=== PATIENT | male | born 1985 | race Caucasian/White ===

== ENCOUNTER 2018-05-17 18:27 | Emergency (ER) | payer OTHER ==
[~2018-05-17] VITALS: Ht 172.7 cm; Wt 81.7 kg
[~2018-05-17 18:27] MED LIST: ACET325 PO; Bactrim Ds Tab1 EACH PO; CEPH500 PO; CYCL10 PO; Cleocin HCl300 MG PO; HYDACE10B PO; HYDACE5 PO; IBUP800 PO; META800 PO; NAPR500 PO; Naprosyn500 MG PO; Norco 5-325 Ta1 EACH PO; OXYACE5T PO; OXYC15ER PO; OXYC5 PO; PENVK500 PO; Percocet 5-3251 EACH PO; RIFA300 PO; RXCYCL10 PO; SULTRIDS PO; TRAM50 PO; Ultram50 MG PO
[2018-05-17] MEDS ORDERED: Bactrim Ds Tab1 EACH PO (20:56)
[2018-05-17] MEDS ORDERED: CORTIZONE-10 1%28 GM TOP (20:56)
[2018-05-17] MEDS ORDERED: CEPH500 PO (20:56)
== END 2018-05-17 21:01 | disposition home or self-care (01) ==
LOC: ER 18:27
DX: L03.011 Cellulitis of right finger (principal); L25.9 Unspecified contact dermatitis, unspecified cause; F15.10 Other stimulant abuse, uncomplicated; F17.210 Nicotine dependence, cigarettes, uncomplicated
CPT/HCPCS: 99283

== ENCOUNTER 2018-07-25 06:37 | Inpatient (IN) | payer OTHER ==
[~2018-07-25] VITALS: Ht 172.7 cm; Wt 87.2 kg
[~2018-07-25 06:37] MED LIST changes: +CORTIZONE-10 1%28 GM TOP
[2018-07-25 07:27] LABS: BASOPHILS ABSOLUTE AUTO 0.08 K/mm3 (0.00-0.23); BASOPHILS PERCENT AUTO 0 % (0-2); EOSINOPHILS PERCENT AUTO 0 % (0-6); Hematocrit 44.2 % (37.0-53.0); Hemoglobin 14.9 g/dL (13.5-17.5); IMMATURE GRAN ABSOLUTE AUTO 0.14 K/mm3 (0.00-0.10); IMMATURE GRAN PERCENT AUTO 1 % (0-1); LYMPHOCYTES ABSOLUTE AUTO 2.11 K/mm3 (0.84-5.20); LYMPHOCYTES PERCENT AUTO 9 % (21-46); MONOCYTES ABSOLUTE AUTO 2.16 K/mm3 (0.16-1.47); MONOCYTES PERCENT AUTO 9 % (4-13); Mean Corpuscular HGB 30.9 pg (26.0-34.0); Mean Corpuscular HGB Conc 33.7 g/dL (31.5-36.5); Mean Corpuscular Volume 92 fL (80-100); Mean Platelet Volume 11.2 fL (9.1-12.4); NEUTROPHILS ABSOLUTE AUTO 19.81 K/mm3 (1.96-9.15); NEUTROPHILS PERCENT AUTO 81 % (41-73); Platelet Count 231 K/mm3 (150-400); RDW Coefficient Variation 12.7 % (11.7-14.2); RDW Standard Deviation 42.9 fL (35.1-46.3); Red Blood Cell Count 4.82 M/mm3 (4.30-5.90)
[2018-07-25 07:43] LABS: Alanine Aminotransfer (ALT/SGP 46 U/L (12-78); Albumin, Blood 4.1 g/dL (3.4-5.0); Albumin/Globulin Ratio 1.2 (0.8-1.8); Alk Phos 68 U/L (50-136); Anion Gap 6 mmol/L (6-16); Aspartate Aminotrans (AST/SGOT 27 U/L (12-37); Bilirubin, Total 0.5 mg/dL (0.1-1.0); Blood Urea Nitrogen 24 mg/dL (8-24); CO2, Blood 26 mmol/L (21-32); Calcium, Blood 9.1 mg/dL (8.5-10.1); Chloride, Blood 102 mmol/L (98-108); Creatinine, Blood 0.96 mg/dL (0.60-1.20); Globulin, Blood 3.5 g/dL (2.2-4.0); Glomerular Filtration Rate >60 (60-); Glucose, Blood 87 mg/dL (70-99); Potassium, Blood 4.5 mmol/L (3.5-5.5); Sodium, Blood 134 mmol/L (136-145); Total Protein, Blood 7.6 g/dL (6.4-8.2)
--- NOTE | 2018-07-25 19:39 | NUR ---
SHIFT SUMMARY: PATIENT ADMIT (OBSERVATION) FROM ED THIS SHIFT. PT A&O; CALM AND COOPERATIVE WITH CARE. MEDICATED FOR R FOOT PAIN PER EMAR. TELE IN PLACE; SR @ 75 PER HOTEL FRONT DESK CLERK.NICODERM 21MG TOP IN PLACE TO R SHOULDER. PATIENT INDEPENDENT IN ROOM. IV ABX CONTINUING. WCTM.
[2018-07-26 05:24] LABS: Hematocrit 44.4 % (37.0-53.0); Hemoglobin 14.6 g/dL (13.5-17.5); Mean Corpuscular HGB 30.9 pg (26.0-34.0); Mean Corpuscular HGB Conc 32.9 g/dL (31.5-36.5); Mean Corpuscular Volume 94 fL (80-100); Mean Platelet Volume 10.3 fL (9.1-12.4); Platelet Count 313 K/mm3 (150-400); RDW Coefficient Variation 12.7 % (11.7-14.2); RDW Standard Deviation 43.8 fL (35.1-46.3); Red Blood Cell Count 4.73 M/mm3 (4.30-5.90); White Blood Cell Count 16.32 K/mm3 (4.00-11.30)
--- NOTE | 2018-07-26 07:44 | NUR ---
07/26/18 0600 VITALS STABLE. MEDICATED FOR PAIN SEVERAL TIMES WITH EFFECT. VOIDING QS. HAD RT FOOT UP ON PILLOW ON AND OFF. UNEVENTFUL NIGHT.
--- NOTE | 2018-07-26 13:38 | NUR ---
Patient is lying in bed and alert. Therapeutic alliance is easily established and so patient openly shares about his rough past and the point of turn around that has led to a whole new way of life. Patient admits that he still has a long way to go in terms of walking out the poor choices in his past but he has a good support system, new found samanta in God and a desire to help himself and others live a healthy life. I listened empathically, provided companionship, reinforced helpful attitudes and practices, provided pastoral certified addiction counselor, heard confession and provided prayer. Patient responded well and displayed evidence of restored samanta.
--- NOTE | 2018-07-26 16:31 | NUR ---
ADVISED PATIENT HAS WHAT APPEARS TO BE RINGWORM LEFT HIP ABOUT 4-5 INCHES LONG, RED, SCALEY, NO BLISTERS, THIN. WILL ORDER MEDS.
--- NOTE | 2018-07-26 16:32 | NUR ---
ALERT AND ORIENTED. GOES OUTSIDE IN WHEELCHAIR. DENIES SMOKING, BUT HAS BEEN SLEEPING MOST OF DAY WHEN IN ROOM. RT FOOT HOT TO TOUCH. PATIENT DOES NOT THINK SWELLING HAS DECREASED, BUT MD DOES. COOPERATIVE. UNLABORED RESPIRATIONS. MEDICATED FOR PAIN WITH GOOD RESULTS. BED IN LOW PSOITION. CALL LIGHT WITHIN REACH. ABLE TO MAKE NEEDS KNOWN. WCTM.
[2018-07-27 05:32] LABS: Hematocrit 49.1 % (37.0-53.0); Mean Corpuscular HGB Conc 32.6 g/dL (31.5-36.5); Mean Corpuscular Volume 95 fL (80-100); Mean Platelet Volume 10.5 fL (9.1-12.4); Platelet Count 309 K/mm3 (150-400); RDW Coefficient Variation 12.7 % (11.7-14.2); RDW Standard Deviation 45.1 fL (35.1-46.3); Red Blood Cell Count 5.16 M/mm3 (4.30-5.90); White Blood Cell Count 13.01 K/mm3 (4.00-11.30)
[2018-07-27 05:58] LABS: Anion Gap 7 mmol/L (6-16); Blood Urea Nitrogen 15 mg/dL (8-24); Bun/Creatinine Ratio 17.2 (12.0-20.0); CO2, Blood 27 mmol/L (21-32); Calcium, Blood 8.8 mg/dL (8.5-10.1); Chloride, Blood 104 mmol/L (98-108); Creatinine, Blood 0.87 mg/dL (0.60-1.20); Glomerular Filtration Rate >60 (60-); Glucose, Blood 87 mg/dL (70-99); Potassium, Blood 4.4 mmol/L (3.5-5.5); Sodium, Blood 138 mmol/L (136-145)
--- NOTE | 2018-07-27 06:34 | NUR ---
SHIFT SUMMARY PATIENT IS ALERT AND ORIENTED. USES CALL LIGHT APPROPRIATELY. PATIENT STAYED IN ROOM THROUGHOUT THE NIGHT, DID HAVE A VISITOR EARLY THIS AM- GIRLFRIEND. PATIENT COMPLAINED OF PAIN THROUGHOUT THE NIGHT AND WAS MEDICATED ORDERED. PT SLEPT WELL THROUGHOUT THE NIGHT. PT STATES HE WOULD LIKE TO SHOWER THIS AM. KEPT RIGHT FOOT ELEVATED ALL NIGHT. VITAL SIGNS STABLE.
--- NOTE | 2018-07-27 15:53 | NUR ---
Spiritual care visit conducted. Patient is sitting up in bed and alert. Patient stated yesterday that he is learning to play guitar and that when he hearded that I play guitar he asked if I could supply some guitar music. I brought my guitar in and played 3 songs then talked with patient about pulling his life up from a life of drugs and crime to a life that adds value and hope to others. I played one more song and patient got tearful and he talked about wanting to get take better care of himself physically and spiritually. Patient thanked me for the visit
--- NOTE | 2018-07-27 18:03 | NUR ---
PT IS ALERT AND ORIENTED AND COOPERATIVE WITH CARE. PT COMPLAINED OF RIGHT FOOT PAIN THROUGHOUT THE DAY AND WAS TREATED PER EMAR. PICTURES WERE TAKEN OF THE PATIENT'S FOOT AND PLACED IN THE CHART. TELEMETRY WAS DC'D. PT AMBULATES BY WHEELCHAIR. INDEPENDENT IN ROOM. WILL CONTINUE TO MONITOR.
[2018-07-28 05:38] LABS: BASOPHILS ABSOLUTE AUTO 0.07 K/mm3 (0.00-0.23); BASOPHILS PERCENT AUTO 1 % (0-2); EOSINOPHILS ABSOLUTE AUTO 0.27 K/mm3 (0.00-0.68); EOSINOPHILS PERCENT AUTO 3 % (0-6); Hematocrit 46.8 % (37.0-53.0); Hemoglobin 15.4 g/dL (13.5-17.5); IMMATURE GRAN ABSOLUTE AUTO 0.03 K/mm3 (0.00-0.10); IMMATURE GRAN PERCENT AUTO 0 % (0-1); LYMPHOCYTES ABSOLUTE AUTO 3.02 K/mm3 (0.84-5.20); LYMPHOCYTES PERCENT AUTO 29 % (21-46); MONOCYTES ABSOLUTE AUTO 0.99 K/mm3 (0.16-1.47); MONOCYTES PERCENT AUTO 9 % (4-13); Mean Corpuscular HGB Conc 32.9 g/dL (31.5-36.5); Mean Corpuscular Volume 94 fL (80-100); Mean Platelet Volume 10.5 fL (9.1-12.4); NEUTROPHILS ABSOLUTE AUTO 6.22 K/mm3 (1.96-9.15); NEUTROPHILS PERCENT AUTO 59 % (41-73); Platelet Count 318 K/mm3 (150-400); RDW Coefficient Variation 12.6 % (11.7-14.2); RDW Standard Deviation 43.3 fL (35.1-46.3); Red Blood Cell Count 4.97 M/mm3 (4.30-5.90)
[2018-07-28 06:05] LABS: Albumin, Blood 3.1 g/dL (3.4-5.0); Anion Gap 6 mmol/L (6-16); Blood Urea Nitrogen 17 mg/dL (8-24); CO2, Blood 28 mmol/L (21-32); Calcium, Blood 8.3 mg/dL (8.5-10.1); Chloride, Blood 104 mmol/L (98-108); Creatinine, Blood 0.85 mg/dL (0.60-1.20); Glomerular Filtration Rate >60 (60-); Glucose, Blood 131 mg/dL (70-99); Phosphorus, Blood 3.6 mg/dL (2.5-4.9); Potassium, Blood 3.7 mmol/L (3.5-5.5); Sodium, Blood 138 mmol/L (136-145)
--- NOTE | 2018-07-28 07:24 | NUR ---
SHIFT SUMMARY PATIENT IS ALERT AND ORIETNED, USES CALL LIGHT APPROPRIATELY. INDEPENDENT IN ROOM. COMPLAINS OF PAIN IN RIGHT FOOT. PATIENT SLEPT WELL THROUGHOUT THE NIGHT. VITALS STABLE.
--- NOTE | 2018-07-28 15:55 | NUR ---
Patient is sitting on the edge of his bed with his foot elevated. Because therapeutic alliance is already established patient tells me his encounters with demons and drug use and his turning to God for help. Patient is leaning into his samanta to help rebuild his life. Patient energizes himself as he tells his story and is grateful for all the support from the [facility] staff, from the user interface artist and from a few friends that are concerned for his health. I listened empathically, Provide pastoral funeral counselor and provide prayer. Patient appears emotionally touched by the prayer and voices appreciation.
--- NOTE | 2018-07-28 16:35 | NUR ---
SHIFT SUMMARY PATIENT ALERT AND ORIENTED. INDEPENDENT. C/O PAIN TO RIGHT FOOT THROUGHOUT THE SHIFT. MEDICATED PER E MAY. DENIES ANY SOB. ABSCESS TO RIGHT GREAT TOE, REDNESS AND SWELLING PRESENT. PATIENT GOES OUTSIDE TO SMOKE FREQUENTLY, TAKES HIMSELF IN WHEELCHAIR. CONSULT CALLED IN TO DR. RIVERA. NO ACUTE CHANGES. RN WILL CONTINUE TO MONITOR.
[2018-07-28 18:32] LABS: U Amphetamine Screen Not Detected; U Barbituate Screen Not Detected; U Benzodiazapine Screen Not Detected; U Cannabinoids Screen DETECTED; U Cocaine Screen Not Detected; U Methadone Screen Not Detected; U Methamphetamine Screen Not Detected; U Opiates Screen DETECTED; U Oxycodone Screen DETECTED; U Phencyclidine Screen Not Detected
[2018-07-28 18:33] LABS: U Buprenorphine Screen Not Detected; U Propoxyphene Screen Not Detected
[2018-07-29 05:41] LABS: BASOPHILS ABSOLUTE AUTO 0.08 K/mm3 (0.00-0.23); BASOPHILS PERCENT AUTO 1 % (0-2); EOSINOPHILS ABSOLUTE AUTO 0.28 K/mm3 (0.00-0.68); EOSINOPHILS PERCENT AUTO 4 % (0-6); Hematocrit 46.7 % (37.0-53.0); Hemoglobin 15.5 g/dL (13.5-17.5); IMMATURE GRAN ABSOLUTE AUTO 0.07 K/mm3 (0.00-0.10); IMMATURE GRAN PERCENT AUTO 1 % (0-1); LYMPHOCYTES ABSOLUTE AUTO 2.94 K/mm3 (0.84-5.20); LYMPHOCYTES PERCENT AUTO 40 % (21-46); MONOCYTES ABSOLUTE AUTO 0.62 K/mm3 (0.16-1.47); MONOCYTES PERCENT AUTO 8 % (4-13); Mean Corpuscular HGB 31.1 pg (26.0-34.0); Mean Corpuscular HGB Conc 33.2 g/dL (31.5-36.5); Mean Corpuscular Volume 94 fL (80-100); Mean Platelet Volume 10.3 fL (9.1-12.4); NEUTROPHILS ABSOLUTE AUTO 3.37 K/mm3 (1.96-9.15); NEUTROPHILS PERCENT AUTO 46 % (41-73); Platelet Count 341 K/mm3 (150-400); RDW Coefficient Variation 12.4 % (11.7-14.2); RDW Standard Deviation 42.7 fL (35.1-46.3); Red Blood Cell Count 4.99 M/mm3 (4.30-5.90); White Blood Cell Count 7.36 K/mm3 (4.00-11.30)
[2018-07-29 05:56] LABS: Albumin, Blood 3.1 g/dL (3.4-5.0); Anion Gap 5 mmol/L (6-16); Blood Urea Nitrogen 18 mg/dL (8-24); Bun/Creatinine Ratio 23.3 (12.0-20.0); CO2, Blood 29 mmol/L (21-32); Calcium, Blood 8.7 mg/dL (8.5-10.1); Chloride, Blood 106 mmol/L (98-108); Creatinine, Blood 0.77 mg/dL (0.60-1.20); Glomerular Filtration Rate >60 (60-); Glucose, Blood 96 mg/dL (70-99); Phosphorus, Blood 3.6 mg/dL (2.5-4.9); Potassium, Blood 4.4 mmol/L (3.5-5.5); Sodium, Blood 140 mmol/L (136-145)
--- NOTE | 2018-07-29 06:33 | NUR ---
SHIFT SUMMARY PT INDEPENDENT. HAS GONE OUTSIDE MULTIPLE TIMES APPROX 5X T/O NIGHT. C/O PAIN IN R LITTLE TOE AND MEDICATED PER EMAR X3. HE WAS ABLE TO DOZE ON AND OFF T/O NOC. BEEN NPO AFTER MIDNIGHT. CALL LIGHT IN REACH.
--- NOTE | 2018-07-29 07:00 | NUR ---
ASSUMED CARE OF PT- RECIEVED REPORT FROM NIGHT JERRY MITCHELL. PER REPORT PT IN ISOLATION FOR A Hx OF MRSA IN A WOUND FROM 2018. PT HAS AN OPEN WOUND ON THE RIGHT PINKY TOE, REDNESS REDUCED AND NO SWELLING NOTED AT THIS TIME.
--- NOTE | 2018-07-29 11:34 | NUR ---
07/29/18 1134 Daysi Robertson PT ON SCHEDULED ANTIBIOTICS
--- NOTE | 2018-07-29 19:21 | NUR ---
SHIFT SUMMARY- PT HAD I&D OF THE RLE TODAY, BANDAGE IN PLACE. PT JUST C/O THE FIRST REAL PAIN SINCE THE PROCEDURE (PER THE PT) MEDICATED PER EMAR. PT ALERT AND ORIENTED AND INDEPENDENT. PT GOES OUTSIDE FREQUENTLY, HE IS A SMOKER. PT HAS Hx IV METH, STATED LAST USED A WEEK AGO. SPOKE TO PT ABOUT THE RISK OF USING IV DRUGS AND THE REDUCED HEALING, SHE INFORMED THE PT HE CAN NOT USE THOSE HERE. PT STATED HE IS NOT USING IV DRUGS ON HIS SMOKE BREAKS.
[2018-07-29 19:59] LABS: Vancomycin, Trough 7.7 ug/mL (5.0-10.0)
--- NOTE | 2018-07-30 06:22 | NUR ---
SHIFT SUMMARY PT A/O INDEPENDENT. SAYS HIS TOE HURTS LESS THAN YESTERDAY BUT STILL MEDICATED FOR PAIN X2. HE WAS ABLE TO SLEEP BETTER LAST NIGHT THAN PREVIOUS. CALL LIGHT IN REACH.
--- NOTE | 2018-07-30 07:33 | NUR ---
ASSUMED CARE OF PT- RECIEVED REPORT FROM NIGHT JERRY MITCHELL. PT STATED PAIN IS "GOOD RIGHT NOW" IV WAS RUNNING VANCO, DISCONNECTED AND FLUSHED PT STATED VERY PAINFUL AND DIFFICULT TO FLUSH. IV DC'D PT WENT OUTSIDE WILL PLACE A NEW IV WHEN HE RETURNS. TOES OF THE RIGHT FOOT ARE WARM AND PINK WITH GOOD CAP REFILL. PT STATED THE PINKY TOE IS STILL NUMB AT THIS TIME. DENIES ALL OTHER N/T NOT C/O N/V PT DID NOT TAKE W/C OUTSIDE THIS TIME HE WENT ON FOOT.
--- NOTE | 2018-07-30 12:15 | NUR ---
Patient is lying in bed and alert. Patient states that he most likely will be going home today. Patient is tired yet very thankful for feeling better. Patient is hesitant to talk about his plans once he is discharged and seems quiet. I encourage self care, provide emotional support and prayer. Patient showed signs of an elevated mood. Patient thanked me for the visit.
[2018-07-30] MEDS ORDERED: Percocet 10-321 EACH PO (16:18)
[2018-07-30] MEDS ORDERED: Lotrimin Ultra12 GM EXT (16:18)
[2018-07-30] MEDS ORDERED: Vsl#3 Capsule1 EACH PO (16:19)
[2018-07-30] MEDS ORDERED: Bactrim Ds Tab1 EACH PO (16:20)
--- NOTE | 2018-07-30 18:43 | NUR ---
DISCHARGE NOTE- PT WAS GIVEN VERBAL AND WRITTEN DISCHARGE INSTRUCTIONS AND ACKNOWLEGED UNDERSTANDING OF THEM AND HAD NO FURTHER QUESTIONS AT THE TIME OF DISCHARGE. PT AWARE OF FOLLOW UP APPOINTMENTS THAT WERE SCHEDULED.
== END 2018-07-30 17:26 | disposition home or self-care (01) | DRG 854 ==
LOC: ER 06:37 → MEDS 06:38 → ENPENDDIS 07-30 15:36 → MEDS 07-30 17:26
PROVIDERS: Emergency Medicine; Internal Medicine; Orthopaedic Surgery; Podiatrist Foot & Ankle Surgery; ADMIT Internal Medicine
PROC: 0JBQ0ZZ Excision of Right Foot Subcutaneous Tissue and Fascia, Open Approach (ICD-10-PCS; principal; 2018-07-29 11:30)
DX: A41.9 Sepsis, unspecified organism (principal); L03.115 Cellulitis of right lower limb; L02.611 Cutaneous abscess of right foot; B19.20 Unspecified viral hepatitis C without hepatic coma; F17.210 Nicotine dependence, cigarettes, uncomplicated; F19.10 Other psychoactive substance abuse, uncomplicated; B35.3 Tinea pedis
CPT/HCPCS: 36415; 73630; 73701; 80048; 80053; 80069; 80202; 83605; 85025; 85027; 85651; 87040; 96365; 96366; 96367; 96372; 96375; 96376; 99284-25; G0378; J0690; J1170; J1650; J1885; J2250; J2405; J2543; J3010; J3370; J7050; J7120; Q9967

== ENCOUNTER 2018-10-09 07:57 | Emergency (ER) | payer OTHER ==
[~2018-10-09] VITALS: Ht 172.7 cm; Wt 86.2 kg
[~2018-10-09 07:57] MED LIST changes: +Lotrimin Ultra12 GM EXT; +Percocet 10-321 EACH PO; +Vsl#3 Capsule1 EACH PO
[2018-10-09] MEDS ORDERED: CEPH500 PO (08:38)
[2018-10-09] MEDS ORDERED: Bactrim Ds Tab1 EACH PO (08:38)
== END 2018-10-09 08:52 | disposition home or self-care (01) ==
LOC: ER 07:57
DX: L02.411 Cutaneous abscess of right axilla (principal); F17.210 Nicotine dependence, cigarettes, uncomplicated; Z86.14 Personal history of Methicillin resistant Staphylococcus aureus infection
CPT/HCPCS: 10060; 99283-25

== ENCOUNTER 2019-02-26 22:05 | Emergency (ER) | payer OTHER ==
[~2019-02-26] VITALS: Ht 172.7 cm; Wt 97.5 kg
== END 2019-02-27 00:40 | disposition home or self-care (01) ==
LOC: ER 22:05
DX: F41.0 Panic disorder [episodic paroxysmal anxiety] (principal); F19.10 Other psychoactive substance abuse, uncomplicated; F17.210 Nicotine dependence, cigarettes, uncomplicated; Z88.2 Allergy status to sulfonamides; Z88.8 Allergy status to other drugs, medicaments and biological substances
CPT/HCPCS: 93005; 93010; 99283-25

== ENCOUNTER 2019-08-12 15:56 | Emergency (ER) | payer OTHER ==
[~2019-08-12] VITALS: Ht 172.7 cm; Wt 88.0 kg
[2019-08-12 17:41] LABS: BASOPHILS ABSOLUTE AUTO 0.07 K/mm3 (0.00-0.23); BASOPHILS PERCENT AUTO 1 % (0-2); EOSINOPHILS ABSOLUTE AUTO 0.33 K/mm3 (0.00-0.68); EOSINOPHILS PERCENT AUTO 3 % (0-6); Hematocrit 48.4 % (37.0-53.0); Hemoglobin 15.8 g/dL (13.5-17.5); IMMATURE GRAN ABSOLUTE AUTO 0.04 K/mm3 (0.00-0.10); IMMATURE GRAN PERCENT AUTO 0 % (0-1); LYMPHOCYTES ABSOLUTE AUTO 2.58 K/mm3 (0.84-5.20); LYMPHOCYTES PERCENT AUTO 21 % (21-46); MONOCYTES ABSOLUTE AUTO 1.22 K/mm3 (0.16-1.47); MONOCYTES PERCENT AUTO 10 % (4-13); Mean Corpuscular HGB 30.7 pg (26.0-34.0); Mean Corpuscular HGB Conc 32.6 g/dL (31.5-36.5); Mean Corpuscular Volume 94 fL (80-100); Mean Platelet Volume 10.3 fL (9.1-12.4); NEUTROPHILS ABSOLUTE AUTO 8.13 K/mm3 (1.96-9.15); NEUTROPHILS PERCENT AUTO 66 % (41-73); Platelet Count 289 K/mm3 (150-400); RDW Coefficient Variation 12.7 % (11.7-14.2); RDW Standard Deviation 44.1 fL (35.1-46.3); Red Blood Cell Count 5.14 M/mm3 (4.30-5.90); White Blood Cell Count 12.37 K/mm3 (4.00-11.30)
[2019-08-12 17:53] LABS: Alanine Aminotransfer (ALT/SGP 59 U/L (12-78); Albumin, Blood 3.8 g/dL (3.4-5.0); Alk Phos 59 U/L (50-136); Anion Gap 3 mmol/L (6-16); Aspartate Aminotrans (AST/SGOT 26 U/L (12-37); Bilirubin, Total 0.3 mg/dL (0.1-1.0); Blood Urea Nitrogen 21 mg/dL (8-24); Bun/Creatinine Ratio 20.6 (12.0-20.0); CO2, Blood 28 mmol/L (21-32); Calcium, Blood 8.8 mg/dL (8.5-10.1); Chloride, Blood 105 mmol/L (98-108); Creatinine, Blood 1.02 mg/dL (0.60-1.20); Globulin, Blood 3.7 g/dL (2.2-4.0); Glomerular Filtration Rate >60 (60-); Glucose, Blood 93 mg/dL (70-99); Sodium, Blood 136 mmol/L (136-145); Total Protein, Blood 7.5 g/dL (6.4-8.2)
[2019-08-12] MEDS ORDERED: Cleocin HCl300 MG PO (20:34)
== END 2019-08-12 20:46 | disposition home or self-care (01) ==
LOC: ER 15:56
PROVIDERS: Physician Assistant
DX: L03.114 Cellulitis of left upper limb (principal); Z88.2 Allergy status to sulfonamides; Z88.8 Allergy status to other drugs, medicaments and biological substances; F17.200 Nicotine dependence, unspecified, uncomplicated; Z86.14 Personal history of Methicillin resistant Staphylococcus aureus infection
CPT/HCPCS: 36415; 73140; 80053; 85025; 90471; 90714; 99283-25

== ENCOUNTER 2019-11-10 17:31 | Emergency (ER) | payer OTHER ==
[~2019-11-10] VITALS: Ht 172.7 cm; Wt 88.5 kg
[2019-11-10] MEDS ORDERED: DOXY100 PO (20:37)
== END 2019-11-10 20:52 | disposition home or self-care (01) ==
LOC: ER 17:31
DX: L03.115 Cellulitis of right lower limb (principal); L03.116 Cellulitis of left lower limb; L03.113 Cellulitis of right upper limb; L03.114 Cellulitis of left upper limb; F17.200 Nicotine dependence, unspecified, uncomplicated
CPT/HCPCS: 99282

== ENCOUNTER 2020-02-29 19:34 | Emergency (ER) | payer OTHER ==
[~2020-02-29] VITALS: Ht 172.7 cm; Wt 88.5 kg
[~2020-02-29 19:34] MED LIST changes: +DOXY100 PO
[2020-02-29 20:29] LABS: Source, Urine Clean Catch
[2020-02-29 20:32] LABS: BASOPHILS ABSOLUTE AUTO 0.04 K/mm3 (0.00-0.23); BASOPHILS PERCENT AUTO 0 % (0-2); EOSINOPHILS ABSOLUTE AUTO 0.14 K/mm3 (0.00-0.68); EOSINOPHILS PERCENT AUTO 2 % (0-6); Hemoglobin 16.2 g/dL (13.5-17.5); IMMATURE GRAN ABSOLUTE AUTO 0.02 K/mm3 (0.00-0.10); IMMATURE GRAN PERCENT AUTO 0 % (0-1); LYMPHOCYTES PERCENT AUTO 27 % (21-46); MONOCYTES ABSOLUTE AUTO 0.65 K/mm3 (0.16-1.47); MONOCYTES PERCENT AUTO 7 % (4-13); Mean Corpuscular HGB 29.9 pg (26.0-34.0); Mean Corpuscular HGB Conc 32.4 g/dL (31.5-36.5); Mean Corpuscular Volume 92 fL (80-100); Mean Platelet Volume 11.2 fL (9.1-12.4); NEUTROPHILS ABSOLUTE AUTO 5.72 K/mm3 (1.96-9.15); NEUTROPHILS PERCENT AUTO 64 % (41-73); Platelet Count 232 K/mm3 (150-400); RDW Coefficient Variation 12.6 % (11.7-14.2); RDW Standard Deviation 43.1 fL (35.1-46.3); Red Blood Cell Count 5.41 M/mm3 (4.30-5.90); White Blood Cell Count 8.97 K/mm3 (4.00-11.30)
[2020-02-29 20:33] LABS: Bilirubin, Urine Neg (Neg); Blood, Urine Neg (Neg); Glucose Qualitative, Urine Neg (Neg); Ketones, Urine Neg (Neg); Leukocyte Esterase, Urine Neg (Neg); Nitrite, Urine Neg (Neg); Protein, Urine Neg (Neg); Specific Gravity, Urine 1.015 (1.003-1.022); Urobilinogen, Urine NORM (Normal); pH, Urine 6.5 (5.0-8.0)
[2020-02-29 20:34] LABS: Appearance, Urine Clear (Clear); Color, Urine Yellow (P-Yellow)
[2020-02-29 20:43] LABS: U Cannabinoids Screen DETECTED; U Methamphetamine Screen DETECTED
[2020-02-29 20:44] LABS: U Amphetamine Screen DETECTED; U Barbituate Screen Not Detected; U Benzodiazapine Screen Not Detected; U Buprenorphine Screen Not Detected; U Cocaine Screen Not Detected; U Methadone Screen Not Detected; U Opiates Screen DETECTED; U Oxycodone Screen Not Detected; U Phencyclidine Screen Not Detected; U Propoxyphene Screen Not Detected
[2020-02-29 20:59] LABS: Alanine Aminotransfer (ALT/SGP 49 U/L (12-78); Albumin, Blood 3.9 g/dL (3.4-5.0); Albumin/Globulin Ratio 1.1 (0.8-1.8); Alk Phos 77 U/L (50-136); Anion Gap 2 mmol/L (6-16); Aspartate Aminotrans (AST/SGOT 34 U/L (12-37); Bilirubin, Total 0.4 mg/dL (0.1-1.0); Blood Urea Nitrogen 15 mg/dL (8-24); Bun/Creatinine Ratio 14.9 (12.0-20.0); CO2, Blood 31 mmol/L (21-32); Calcium, Blood 9.4 mg/dL (8.5-10.1); Chloride, Blood 106 mmol/L (98-108); Creatinine, Blood 1.01 mg/dL (0.60-1.20); Globulin, Blood 3.5 g/dL (2.2-4.0); Glomerular Filtration Rate >60 (60-); Glucose, Blood 91 mg/dL (70-99); Potassium, Blood 5.2 mmol/L (3.5-5.5); Sodium, Blood 139 mmol/L (136-145); Total Protein, Blood 7.4 g/dL (6.4-8.2)
[2020-02-29] MEDS ORDERED: CEPH500 PO (21:05)
== END 2020-02-29 21:32 | disposition home or self-care (01) ==
LOC: ER 19:34
PROVIDERS: Emergency Medicine
DX: R10.9 Unspecified abdominal pain (principal); L89.899 Pressure ulcer of other site, unspecified stage; F19.10 Other psychoactive substance abuse, uncomplicated; F17.210 Nicotine dependence, cigarettes, uncomplicated; Z88.2 Allergy status to sulfonamides; Z88.1 Allergy status to other antibiotic agents; Z79.899 Other long term (current) drug therapy
CPT/HCPCS: 71046; 76770; 80053; 81003; 83690; 85025; 99284-25

== ENCOUNTER 2021-04-16 11:50 | Emergency (ER) | payer OTHER ==
[~2021-04-16] VITALS: Ht 172.7 cm; Wt 86.2 kg
== END 2021-04-16 14:55 | disposition left against medical advice (07) ==
LOC: ER 11:50
DX: S39.012A Strain of muscle, fascia and tendon of lower back, initial encounter (principal); Z88.2 Allergy status to sulfonamides; Z88.1 Allergy status to other antibiotic agents; Z53.21 Procedure and treatment not carried out due to patient leaving prior to being seen by health care provider
CPT/HCPCS: 99284

== ENCOUNTER 2021-11-07 19:51 | Emergency (ER) | payer OTHER ==
[~2021-11-07] VITALS: Ht 172.7 cm; Wt 86.2 kg
[2021-11-07] MEDS ORDERED: CEPH500 PO (21:39)
== END 2021-11-07 21:24 | disposition home or self-care (01) ==
LOC: ER 19:51
DX: L03.114 Cellulitis of left upper limb (principal); L03.113 Cellulitis of right upper limb; F17.210 Nicotine dependence, cigarettes, uncomplicated; Z88.1 Allergy status to other antibiotic agents; Z88.2 Allergy status to sulfonamides
CPT/HCPCS: 99282; A9270

== ENCOUNTER 2022-10-06 06:07 | Emergency (ER) | payer OTHER ==
[~2022-10-06] VITALS: Ht 172.7 cm; Wt 88.5 kg
[2022-10-06 07:02] VITALS: BP 146/104
[2022-10-06] MEDS ORDERED: AMOCLA875 PO (07:11)
[2022-10-06] MEDS ORDERED: NAPR500 PO (07:11)
== END 2022-10-06 07:20 | disposition home or self-care (01) ==
LOC: ER 06:07
DX: K03.81 Cracked tooth (principal); Z88.2 Allergy status to sulfonamides; Z88.1 Allergy status to other antibiotic agents; F17.210 Nicotine dependence, cigarettes, uncomplicated
CPT/HCPCS: A9270; J1100